=== PATIENT | female | born 1965 | race American Indian/Alaskan Native ===

== ENCOUNTER 2019-05-03 04:07 | Emergency (ER) | payer SELFPAY ==
[2019-05-03] MEDS ORDERED: BABY ASPIRIN PO ONE (04:29)
[2019-05-03 04:56] LABS: Basophils # (Auto) 0.1 K/mm3 (0.0-0.1); Basophils % (Auto) 1.2 % (0.0-1.8); Eosinophils # (Auto) 0.3 K/mm3 (0.0-0.4); Eosinophils % (Auto) 3.2 % (0.0-4.3); Hematocrit 38.7 % (30.3-42.9); Lymphocytes % (Auto) 30.5 % (13.4-35.0); Mean Corpuscular HGB Conc 34 % (30-34); Mean Corpuscular Volume 96 fl (79-97); Monocytes % (Auto) 10.2 % (0.0-7.3); Platelet Count 135 K/mm3 (140-440); Red Blood Count 4.03 M/mm3 (3.65-5.03); Red Cell Distribution Width 15.5 % (13.2-15.2)
[2019-05-03 05:22] LABS: Alanine Aminotransferase 22 units/L (7-56); Albumin 4.3 g/dL (3.9-5); Calcium 8.6 mg/dL (8.4-10.2); Hemolysis Index 6
--- NOTE | 2019-05-03 05:22 | XRay Report ---
CHEST 2 VIEWS INDICATION / CLINICAL INFORMATION: Chest pain for one day. COMPARISON: None available. FINDINGS: SUPPORT DEVICES: None. HEART / MEDIASTINUM: No significant abnormality. LUNGS / PLEURA: No significant pulmonary or pleural abnormality. No pneumothorax. ADDITIONAL FINDINGS: No significant additional findings. IMPRESSION: No acute findings. Signer Name: Hernán Lawrence MD Signed: 05/03/2019 5:17 AM Workstation Name: [id number]
[2019-05-03] MEDS ORDERED: MORPHINE IM ONE (05:26)
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
[2019-05-03] MEDS ORDERED: CATAPRES PO ONE (07:22)
[2019-05-03 07:47] LABS: BUN/Creatinine Ratio 14; Blood Urea Nitrogen 17 mg/dL (7-17)
[2019-05-03 07:53] VITALS: BP 174/124
== END 2019-05-03 08:30 | disposition home or self-care (01) ==
LOC: ED 04:07
DX: S16.1XXA Strain of muscle, fascia and tendon at neck level, initial encounter (principal); S63.502A Unspecified sprain of left wrist, initial encounter; S43.402A Unspecified sprain of left shoulder joint, initial encounter; R07.89 Other chest pain; I11.0 Hypertensive heart disease with heart failure; I50.9 Heart failure, unspecified; J44.9 Chronic obstructive pulmonary disease, unspecified; Z87.448 Personal history of other diseases of urinary system; Z79.899 Other long term (current) drug therapy; Z88.0 Allergy status to penicillin; Y04.0XXA Assault by unarmed brawl or fight, initial encounter; Y93.89 Activity, other specified; Y92.89 Other specified places as the place of occurrence of the external cause; Y99.8 Other external cause status
CPT/HCPCS: 36415; 71046; 72040; 73030; 73110; 73130; 80053; 82550; 84484; 85025; 93005; 93010; 96372; 99284; J2270

== ENCOUNTER 2019-09-14 11:47 | Emergency (ER) | payer MEDICAID ==
[2019-09-14 11:52] VITALS: BP 148/93
--- NOTE | 2019-09-14 11:55 | Event Note ---
ED Screening Note ED Screening Note: +productive cough with yellow sputum that began 4 days +fever +sob PMHx HTN, CKD, COPD former quit 6 months ago This initial assessment/diagnostic orders/clinical plan/treatment(s) is/are subject to change based on patients health status, clinical progression and re- assessment by fellow clinical providers in the ED. Further treatment and workup at subsequent clinical providers discretion. Patient/guardian urged not to elope from the ED as their condition may be serious if not clinically assessed and managed. Initial orders include: CXR
--- NOTE | 2019-09-14 12:35 | XRay Report ---
CHEST 2 VIEWS INDICATION / CLINICAL INFORMATION: prod cough, sob, subjective fever. COMPARISON: 05/02/2019 FINDINGS: SUPPORT DEVICES: None. HEART / MEDIASTINUM: No significant abnormality. LUNGS / PLEURA: No significant pulmonary or pleural abnormality. No pneumothorax. ADDITIONAL FINDINGS: No significant additional findings. IMPRESSION: 1. No acute finding. No significant change. Signer Name: Siddhartha Estes MD Signed: 09/14/2019 12:31 PM Workstation Name: [id number]
--- NOTE | 2019-09-14 13:00 | Emergency Department Report ---
Minor Respiratory - HPI Chief Complaint: Upper Respiratory Infection Stated Complaint: FEVER/CEHST PAIN Time Seen by Provider: 09/14/19 11:52 Duration: 3 Days Pain Location: Throat, Nose, Chest Severity: mild Minor Respiratory: Yes Rhinorrhea, Yes Sore Throat, Yes Able to Tolerate Fluids, Yes Cough, Yes Sick Contacts, Yes Fever, No Hemoptysis, No Chest Pain, No Shortness of Breath Other History: Mrs. Key is a 54-year-old female with history of COPD, chronic kidney disease and hypertension who presents with fever cough with congestion for several days. Productive for white sputum. Positive sore throat. ED Review of Systems ROS: Stated complaint: FEVER/CEHST PAIN Other details as noted in HPI Constitutional: fever, malaise ENT: congestion Respiratory: cough. denies: shortness of breath, wheezing Cardiovascular: denies: chest pain Gastrointestinal: nausea ED Past Medical Hx - Past Medical History Hx Hypertension: Yes Hx Congestive Heart Failure: Yes Hx Renal Disease: Yes Hx COPD: Yes - Social History Smoking Status: Never Smoker Substance Use Type: None - Medications Home Medications: Home Medications Medication Instructions Recorded Confirmed Last Taken Type Furosemide [Lasix TAB] 20 mg PO QDAY #30 tablet 05/03/19 Unknown Rx Naproxen [Naprosyn] 500 mg PO BID #20 tablet 05/03/19 Unknown Rx amLODIPine 10 mg PO BID #30 tablet 05/03/19 Unknown Rx carvediloL [Coreg] 6.25 mg PO BID 30 Days tablet 05/03/19 Unknown Rx methOCARBAMOL [Robaxin TAB] 500 mg PO Q8HR PRN #20 tablet 05/03/19 Unknown Rx Doxycycline Hyclate [Doxycycline 100 mg PO Q12HR 7 Days #14 tab 09/14/19 Unknown Rx Hyclate TAB] Loratadine 10 mg PO DAILY 14 Days #14 capsule 09/14/19 Unknown Rx Minor Respiratory Exam - Exam General: Vital signs noted. No distress. Alert and acting appropriately. HEENT: Yes Moist Mucous Membranes, Yes Rhinorrhea, No Pharyngeal Erythema, No Pharyngeal Exudates, No Conjuctival Injection Neck: Yes Supple Lungs: Yes Good Air Exchange, No Wheezes, No Ronchi, No Stridor, No Cough, No Labored Respirations, No Retractions, No Use of Accessory Muscles, No Other Abnormal Lung Sounds Heart: Yes Regular, No Murmur Abdomen: Yes Normal Bowel Sounds, No Tenderness, No Peritoneal Signs Skin: No Rash, No Edema Neurologic: Alert and oriented, no deficits. Musculoskeletal: Unremarkable. ED Course Vital Signs 09/14/19 11:51 Temperature 97.6 F Pulse Rate 68 Respiratory 24 Rate Blood Pressure 148/93 O2 Sat by Pulse 98 Oximetry ED Medical Decision Making - Medical Decision Making Ms. Key presents with upper respiratory infection. With history of productive cough and COPD, antibiotics are indicated. Prescribed doxycycline and loratadine. Critical care attestation.: If time is entered above; I have spent that time in minutes in the direct care of this critically ill patient, excluding procedure time. ED Disposition Clinical Impression: Upper respiratory infection, Acute bronchitis Disposition: DC- TO HOME OR SELFCARE Is pt being admited?: No Does the pt Need Aspirin: No Condition: Stable Instructions: Acute Bronchitis (ED) Prescriptions: Doxycycline Hyclate [Doxycycline Hyclate TAB] 100 mg PO Q12HR 7 Days #14 tab Loratadine 10 mg PO DAILY 14 Days #14 capsule Referrals: AMY DELVALLE MD [Staff Physician] - as needed
== END 2019-09-14 13:15 | disposition home or self-care (01) ==
LOC: ED 11:47
DX: J06.9 Acute upper respiratory infection, unspecified (principal); J20.9 Acute bronchitis, unspecified; I11.0 Hypertensive heart disease with heart failure; I50.9 Heart failure, unspecified; J44.9 Chronic obstructive pulmonary disease, unspecified; Z88.0 Allergy status to penicillin; Z79.899 Other long term (current) drug therapy
CPT/HCPCS: 71046

== ENCOUNTER 2021-04-08 18:11 | Observation (INO) | payer MEDICAID ==
[2021-04-08] MEDS ORDERED: ASPIRIN 325 MG TAB PO ONE (18:34)
[2021-04-08 19:03] LABS: Basophils # (Auto) 0.1 K/mm3 (0.0-0.1); Basophils % (Auto) 1.4 % (0.0-1.8); Eosinophils # (Auto) 0.1 K/mm3 (0.0-0.4); Eosinophils % (Auto) 1.5 % (0.0-4.3); Hematocrit 41.7 % (30.3-42.9); Hemoglobin 13.8 gm/dl (10.1-14.3); Lymphocytes # (Auto) 2.9 K/mm3 (1.2-5.4); Lymphocytes % (Auto) 34.3 % (13.4-35.0); Mean Corpuscular HGB Conc 33 % (30-34); Mean Corpuscular Volume 98 fl (79-97); Monocytes % (Auto) 12.2 % (0.0-7.3); Platelet Count 165 K/mm3 (140-440); Red Blood Count 4.28 M/mm3 (3.65-5.03)
[2021-04-08 19:28] LABS: Alanine Aminotransferase 17 units/L (7-56); Albumin 4.5 g/dL (3.9-5); BUN/Creatinine Ratio 10; Blood Urea Nitrogen 12 mg/dL (7-17); Calcium 9.2 mg/dL (8.4-10.2); Hemolysis Index 10
--- NOTE | 2021-04-08 23:57 | Emergency Department Report ---
ED Chest Pain HPI - General Chief Complaint: Chest Pain Stated Complaint: CHEST PAINS PUI?: No Time Seen by Provider: 04/08/21 23:15 Source: patient Mode of arrival: Ambulatory Limitations: No Limitations - History of Present Illness Initial Comments: Patient is a 56-year-old female that presents emergency room with complaints of chest pain and shortness of breath. Patient also complains of a dry cough. Patient states her symptoms been going on for 2 days. Patient states that her cough has been going on for 3 days. Patient denies fever or chills. Patient also complains of swollen legs. Patient states she has history of CHF, COPD, [place], hypertension, CKD. Patient denies loss of smell. Patient denies fever or chills. Patient denies productive cough. Patient denies recent travel. Patient denies recent international travel. Patient denies exposure to the novel coronavirus. Patient denies sick contacts. Patient denies fever and chills. Patient denies cough. Patient denies diarrhea. Patient denies coming in contact with anybody with symptoms of the novel coronavirus. MD Complaint: chest pain -: Sudden Onset: during rest Pain Location: substernal, left chest Pain Radiation: LUE, back, neck Severity: severe Severity scale (0 -10): 10 Quality: sharp Consistency: constant Improves With: rest Worsens With: exertion, inspiration, palpation, movement re: dyspnea. denies: nausea, vomting, diaphoresis, sense of impending doom Other Symptoms: cough. denies: fever, syncope, rash, acid taste in mouth, leg swelling, palpitations Treatments Prior to Arrival: aspirin Aspirin use within the Past 7 Days: (1) Yes - Related Data On Oral Contraceptives: No Previous Rx's Medication Instructions Recorded Last Taken Type Furosemide [Lasix TAB] 20 mg PO QDAY #30 tablet 05/03/19 Unknown Rx Naproxen [Naprosyn] 500 mg PO BID #20 tablet 05/03/19 Unknown Rx amLODIPine 10 mg PO BID #30 tablet 05/03/19 Unknown Rx carvediloL [Coreg] 6.25 mg PO BID 30 Days tablet 05/03/19 Unknown Rx methOCARBAMOL [Robaxin TAB] 500 mg PO Q8HR PRN #20 tablet 05/03/19 Unknown Rx Doxycycline Hyclate [Doxycycline 100 mg PO Q12HR 7 Days #14 tab 09/14/19 Unknown Rx Hyclate TAB] Loratadine 10 mg PO DAILY 14 Days #14 capsule 09/14/19 Unknown Rx Allergies Allergy/AdvReac Type Severity Reaction Status Date / Time Penicillins Allergy Rash Verified 05/03/19 07:44 Heart Score - HEART Score History: Slightly suspicious EKG: Normal Age: 45-65 Risk factors: > 3 risk factors or hx of atherosclerotic disease Troponin: < normal limit HEART Score: 3 - EKG Read Time Time EKG Completed: 18:37 EKG Read Time: 18:37 ED Review of Systems ROS: Stated complaint: CHEST PAINS Other details as noted in HPI Constitutional: denies: chills, fever Eyes: denies: eye pain, eye discharge, vision change ENT: denies: ear pain, throat pain Respiratory: see HPI, cough, shortness of breath, SOB with exertion, SOB at rest. denies: wheezing Cardiovascular: as per HPI, chest pain. denies: palpitations Endocrine: no symptoms reported Gastrointestinal: denies: abdominal pain, nausea, diarrhea Genitourinary: denies: urgency, dysuria, discharge Musculoskeletal: denies: back pain, joint swelling, arthralgia Skin: denies: rash, lesions Neurological: denies: headache, weakness, paresthesias Psychiatric: denies: anxiety, depression Hematological/Lymphatic: denies: easy bleeding, easy bruising ED Past Medical Hx - Past Medical History Previous Medical History?: Yes Hx Hypertension: Yes Hx Heart Attack/AMI: Yes Hx Congestive Heart Failure: Yes Hx Renal Disease: Yes Hx COPD: Yes - Surgical History Past Surgical History?: Yes Additional Surgical History: thyroid, neck surgery with a metal plate - Family History Family history: no significant - Social History Smoking Status: Never Smoker Substance Use Type: None - Medications Home Medications: Home Medications Medication Instructions Recorded Confirmed Last Taken Type Furosemide [Lasix TAB] 20 mg PO QDAY #30 tablet 05/03/19 Unknown Rx Naproxen [Naprosyn] 500 mg PO BID #20 tablet 05/03/19 Unknown Rx amLODIPine 10 mg PO BID #30 tablet 05/03/19 Unknown Rx carvediloL [Coreg] 6.25 mg PO BID 30 Days tablet 05/03/19 Unknown Rx methOCARBAMOL [Robaxin TAB] 500 mg PO Q8HR PRN #20 tablet 05/03/19 Unknown Rx Doxycycline Hyclate [Doxycycline 100 mg PO Q12HR 7 Days #14 tab 09/14/19 Unknown Rx Hyclate TAB] Loratadine 10 mg PO DAILY 14 Days #14 capsule 09/14/19 Unknown Rx ED Physical Exam - General Limitations: No Limitations General appearance: alert, in no apparent distress - Head Head exam: Present: atraumatic, normocephalic - Eye Eye exam: Present: normal appearance - ENT ENT exam: Present: mucous membranes moist - Neck Neck exam: Present: normal inspection - Respiratory Respiratory exam: Present: respiratory distress, wheezes, rhonchi, chest wall tenderness - Cardiovascular Cardiovascular Exam: Present: regular rate, normal rhythm. Absent: systolic murmur, diastolic murmur, rubs, gallop - GI/Abdominal GI/Abdominal exam: Present: soft, normal bowel sounds - Extremities Exam Extremities exam: Present: normal inspection - Back Exam Back exam: Present: normal inspection - Neurological Exam Neurological exam: Present: alert, oriented X3 - Psychiatric Psychiatric exam: Present: normal affect, normal mood - Skin Skin exam: Present: warm, dry, intact, normal color. Absent: rash ED Course Vital Signs 04/08/21 04/09/21 04/09/21 18:33 00:45 00:46 Temperature 98.9 F 98 F Pulse Rate 77 62 Pulse Rate [ 64 Bilateral] Respiratory 20 18 Rate Respiratory 20 Rate [Bilateral ] Blood Pressure 152/102 Blood Pressure 158/93 [Right] O2 Sat by Pulse 98 99 Oximetry - Reevaluation(s) Reevaluation #1: Patient found to have increased work of breathing and abnormal lung sounds. Patient will be given DuoNeb, Medrol, magnesium. 04/09/21 00:01 Reevaluation #2: I discussed all results with patient. I discussed plan of care with patient. Patient agrees with plan of care and admission. Patient to be admitted to the hospitalist service. 04/09/21 00:26 - Consultations Consultation #1: Hospitalist consulted for admission. Hospitalist to admit patient. 04/09/21 00:26 MIKE score - Mike Score Age > 65: (0) No Aspirin use within the Past 7 Days: (1) Yes 3 or more CAD Risk Factors: (1) Yes 2 or more Angina events in past 24 hrs: (0) No Known CAD with more than 50% Stenosis: (0) No Elevated Cardiac Markers: (0) No ST Deviation Greater than 0.5mm: (0) No MIKE Score: 2 ED Medical Decision Making - Lab Data Result diagrams: 04/08/21 18:46 04/08/21 18:46 - EKG Data -: EKG Interpreted by Me EKG shows normal: sinus rhythm, axis, intervals, QRS complexes, ST-T waves Rate: normal - Radiology Data Radiology results: report reviewed, image reviewed interpreted by me: Chest x-ray: No pneumonia, no pneumothorax, no foreign body, no osseous findings, no acute findings CHEST 2 VIEWS INDICATION / CLINICAL INFORMATION: CP...CP x 2 days, +SOB x 2 days, legs swollen.. COMPARISON: None available FINDINGS: SUPPORT DEVICES: None. HEART / MEDIASTINUM: No significant abnormality. LUNGS / PLEURA: No significant pulmonary or pleural abnormality. No pneumothorax. ADDITIONAL FINDINGS: No significant additional findings. IMPRESSION: 1. No acute findings. - Medical Decision Making Patient is a 56-year-old female that presents emergency room with complaints of chest pain shortness of breath and cough. Patient had abnormal lung sounds on exam. Patient had wheezing and rhonchi. Patient given duo nebs, steroids and magnesium after initial evaluation. Patient had labs done which were essentially unremarkable. Patient had 2 - troponins. Patient's EKG was unremarkable and showed normal sinus rhythm and no ST changes. I personally reviewed the EKG. Patient had a chest x-ray which was negative for acute finding. I personally reviewed EKG. Patient admitted to the hospital service for further evaluation treatment. Patient will need admitted to rule out ACS and for COPD exacerbation. Critical care time documented due to the multiple reassessments, prolonged time at the bedside, interpretation of diagnostics and labs. - Differential Diagnosis Chest pain, COPD exacerbation, ACS, shortness of breath, pneumonia Critical Care Time: Yes Critical care time in (mins) excluding proc time.: 35 Critical care attestation.: If time is entered above; I have spent that time in minutes in the direct care of this critically ill patient, excluding procedure time. Critical Care Time: 35 minutes ED Disposition Clinical Impression: SOB (shortness of breath), Chest wall pain, COPD exacerbation, Cough Chest pain Qualifiers: Chest pain type: unspecified Qualified Code(s): R07.9 - Chest pain, unspecified Disposition: 09 OP ADMIT IP TO THIS HOSP Is pt being admited?: Yes Does the pt Need Aspirin: No Condition: Critical Time of Disposition: 00:26
[2021-04-08] MEDS ORDERED: HYDROmorphone 1 MG/1 ML INJ IV ONE (23:58)
[2021-04-08] MEDS ORDERED: methylPREDNISolone Sod Succinate 125 MG/2 ML INJ IV ONE (23:58)
[2021-04-08] MEDS ORDERED: IPRATROPIUM/ALBUTEROL SULFATE 3 ML AMPUL.NEB IH ONE (23:58)
[2021-04-08] MEDS ORDERED: MAGNESIUM SULFATE 2 GM/50 ML BAG IV ONE (23:58)
[2021-04-09] MEDS ORDERED: traMADol 50 MG TAB PO PRN (01:43)
[2021-04-09] MEDS ORDERED: NITROGLYCERIN 0.4 MG TAB SUBL SL PRN (01:43)
[2021-04-09] MEDS ORDERED: ACETAMINOPHEN 325 MG TAB PO PRN (01:43)
[2021-04-09] MEDS ORDERED: MORPHINE 4 MG/1 ML INJ IV PRN (01:43)
[2021-04-09] MEDS ORDERED: hydrALAZINE 20 MG/1 ML INJ IV PRN (01:47)
--- NOTE | 2021-04-09 01:52 | History and Physical Report ---
History of Present Illness Date of examination: 04/09/21 Date of admission: 04/09/21 00:16 Chief complaint: Chest pain shortness of breath History of present illness: 56-year-old female with history of CHF COPD DE hypertension and CKD was brought to the emergency room because of chest pain and shortness of breath. Patient also complains of a dry cough. Patient states her symptoms been going on for 2 days. Patient states that her cough has been going on for 3 days. Patient also complains of swollen legs. Patient states she has history of CHF, COPD, DE, hypertension, CKD. Patient denies loss of smell. Patient denies fever or chills. Patient denies productive cough. In the emergency room patient troponin is 0.010. Patient also found to have acute COPD exacerbation Past History Past Medical History: acute DE, COPD, heart failure, hypertension, renal failure Medications and Allergies Allergies Allergy/AdvReac Type Severity Reaction Status Date / Time Penicillins Allergy Rash Verified 05/03/19 07:44 Home Medications Medication Instructions Recorded Confirmed Last Taken Type Furosemide [Lasix TAB] 20 mg PO QDAY #30 tablet 05/03/19 Unknown Rx Naproxen [Naprosyn] 500 mg PO BID #20 tablet 05/03/19 Unknown Rx amLODIPine 10 mg PO BID #30 tablet 05/03/19 Unknown Rx carvediloL [Coreg] 6.25 mg PO BID 30 Days tablet 05/03/19 Unknown Rx methOCARBAMOL [Robaxin TAB] 500 mg PO Q8HR PRN #20 tablet 05/03/19 Unknown Rx Doxycycline Hyclate [Doxycycline 100 mg PO Q12HR 7 Days #14 tab 09/14/19 Unknown Rx Hyclate TAB] Loratadine 10 mg PO DAILY 14 Days #14 capsule 09/14/19 Unknown Rx Review of Systems Cardiovascular: chest pain, shortness of breath, dyspnea on exertion Respiratory: cough, cough with sputum, shortness of breath, dyspnea on exertion Exam - Constitutional Vitals: Temp Pulse Resp BP Pulse Ox 98 F 62 18 158/93 99 04/09/21 00:46 04/09/21 00:46 04/09/21 00:46 04/09/21 00:46 04/09/21 00:46 General appearance: Present: no acute distress, well-nourished - EENT Eyes: Present: PERRL ENT: hearing intact, clear oral mucosa - Neck Neck: Present: supple, normal ROM - Respiratory Respiratory effort: normal, other (Chest wall tenderness) Respiratory: bilateral: rhonchi, wheezing - Cardiovascular Heart Sounds: Present: S1 & S2. Absent: rub, click - Extremities Extremities: pulses symmetrical, No edema Peripheral Pulses: within normal limits - Abdominal General gastrointestinal: Present: soft, non-tender, non-distended, normal bowel sounds Female genitourinary: Present: normal - Integumentary Integumentary: Present: clear, warm, dry - Musculoskeletal Musculoskeletal: gait normal, strength equal bilaterally - Psychiatric Psychiatric: appropriate mood/affect, intact judgment & insight - Neurologic Neurologic: CNII-XII intact, moves all extremities HEART Score - HEART Score EKG: Normal Age: 45-65 Risk factors: > 3 risk factors or hx of atherosclerotic disease Troponin: Troponin T < 0.010 ng/mL (0.00-0.029) 04/09/21 00:35 Troponin: < normal limit Results - Labs CBC & Chem 7: 04/08/21 18:46 04/08/21 18:46 Labs: Laboratory Last Values WBC 8.3 K/mm3 (4.5-11.0) 04/08/21 18:46 RBC 4.28 M/mm3 (3.65-5.03) 04/08/21 18:46 Hgb 13.8 gm/dl (10.1-14.3) 04/08/21 18:46 Hct 41.7 % (30.3-42.9) 04/08/21 18:46 MCV 98 fl (79-97) H 04/08/21 18:46 MCH 32 pg (28-32) 04/08/21 18:46 MCHC 33 % (30-34) 04/08/21 18:46 RDW 15.0 % (13.2-15.2) 04/08/21 18:46 Plt Count 165 K/mm3 (140-440) 04/08/21 18:46 Lymph % (Auto) 34.3 % (13.4-35.0) 04/08/21 18:46 Glynn % (Auto) 12.2 % (0.0-7.3) H 04/08/21 18:46 Eos % (Auto) 1.5 % (0.0-4.3) 04/08/21 18:46 Baso % (Auto) 1.4 % (0.0-1.8) 04/08/21 18:46 Lymph # (Auto) 2.9 K/mm3 (1.2-5.4) 04/08/21 18:46 Glynn # (Auto) 1.0 K/mm3 (0.0-0.8) H 04/08/21 18:46 Eos # (Auto) 0.1 K/mm3 (0.0-0.4) 04/08/21 18:46 Baso # (Auto) 0.1 K/mm3 (0.0-0.1) 04/08/21 18:46 Seg Neutrophils % 50.6 % (40.0-70.0) 04/08/21 18:46 Seg Neutrophils # 4.2 K/mm3 (1.8-7.7) 04/08/21 18:46 Sodium 142 mmol/L (137-145) 04/08/21 18:46 Potassium 3.7 mmol/L (3.6-5.0) 04/08/21 18:46 Chloride 104.3 mmol/L (98-107) 04/08/21 18:46 Carbon Dioxide 19 mmol/L (22-30) L 04/08/21 18:46 Anion Gap 22 mmol/L 04/08/21 18:46 BUN 12 mg/dL (7-17) 04/08/21 18:46 Creatinine 1.2 mg/dL (0.6-1.2) 04/08/21 18:46 Estimated GFR 57 ml/min 04/08/21 18:46 BUN/Creatinine Ratio 10 % 04/08/21 18:46 Glucose 82 mg/dL (65-100) 04/08/21 18:46 Calcium 9.2 mg/dL (8.4-10.2) 04/08/21 18:46 Total Bilirubin 0.20 mg/dL (0.1-1.2) 04/08/21 18:46 AST 20 units/L (5-40) 04/08/21 18:46 ALT 17 units/L (7-56) 04/08/21 18:46 Alkaline Phosphatase 91 units/L (35-129) 04/08/21 18:46 Troponin T < 0.010 ng/mL (0.00-0.029) 04/09/21 00:35 NT-Pro-B Natriuret Pep 73.85 pg/mL (0-900) 04/08/21 18:46 Total Protein 7.3 g/dL (6.3-8.2) 04/08/21 18:46 Albumin 4.5 g/dL (3.9-5) 04/08/21 18:46 Albumin/Globulin Ratio 1.6 % 04/08/21 18:46 - Imaging and Cardiology Chest x-ray: report reviewed Assessment and Plan VTE prophylaxis?: Chemical Plan of care discussed with patient/family: Yes - Patient Problems (1) Acute coronary syndrome Current Visit: Yes Status: Acute Plan to address problem: Admit the patient to the medical telemetry. Aspirin 81 mg p.o. daily. Lipitor 40 mg p.o. daily nitroglycerin as needed we will do the serial cardiac enzyme . We also do a Lexiscan. Consult cardiology if needed (2) Hypertension Current Visit: Yes Status: Acute Plan to address problem: Coreg 6.25 mg p.o. twice daily, hydralazine 10 mg every 6 hours as needed. We will monitor the blood pressure closely (3) GERD (gastroesophageal reflux disease) Current Visit: Yes Status: Acute Plan to address problem: Pepcid 20 mg IV every 12 hours. We will continue the home medication (4) CHF (congestive heart failure) Current Visit: Yes Status: Acute Plan to address problem: Stable. We will continue the Coreg 6.25 mg p.o. twice daily and Lasix 20 mg p.o. daily. We will also do a Lexiscan. Fluid restriction (5) COPD exacerbation Current Visit: Yes Status: Acute Plan to address problem: Oxygen via nasal cannula 3 to per minute DuoNeb by nebulizer every 4 hours. Albuterol via nebulizer every 4 hours as needed. We will continue the home medication (6) SOB (shortness of breath) Current Visit: Yes Status: Acute Plan to address problem: Oxygen via nasal cannula 3 to per minute DuoNeb by nebulizer every 4 hours. Albuterol via nebulizer every 4 hours as needed. We will continue the home medication (7) DVT prophylaxis Current Visit: Yes Status: Acute Plan to address problem: Heparin 5000 units subcu every 8 hours for DVT prophylaxis. Pepcid 20 mg p.o. twice daily for GI prophylaxis. Patient is a full code
[2021-04-09] MEDS: IPRATROPIUM/ALBUTEROL SULFATE 3 ML AMPUL.NEB IH SCH ×4 (02:34→20:06)
[2021-04-09 05:20] LABS: Mean Corpuscular HGB Conc 34 % (30-34); Mean Corpuscular Volume 96 fl (79-97); Platelet Count 155 K/mm3 (140-440); Red Blood Count 4.28 M/mm3 (3.65-5.03)
[2021-04-09] MEDS: HEPARIN 5,000 UNIT/1 ML VIAL SUB-Q SCH ×3 (05:30→21:30)
[2021-04-09 05:35] LABS: BUN/Creatinine Ratio 10; Blood Urea Nitrogen 10 mg/dL (7-17); Calcium 8.9 mg/dL (8.4-10.2); Hemolysis Index 2
[2021-04-09 06:31] LABS: Total Cells Counted 100
[2021-04-09 06:32] LABS: Giant Platelets Few; Platelet Estimate Consistent w Auto; RBC Morphology Normal
[2021-04-09] MEDS ORDERED: REGADENOSON 0.4 MG/5 ML INJ IV ONE (07:24)
[2021-04-09] MEDS ORDERED: CETIRIZINE 10 MG TAB PO SCH (10:00)
[2021-04-09] MEDS ORDERED: FUROSEMIDE 20 MG TAB PO SCH (10:00)
[2021-04-09] MEDS ORDERED: PANTOPRAZOLE 40 MG TAB PO SCH (10:00)
[2021-04-09] MEDS ORDERED: LORATADINE 10 MG PO SCH (10:00)
[2021-04-09] MEDS: amLODIPine 10 MG TAB PO SCH ×2 (10:56→21:32)
[2021-04-09] MEDS: methylPREDNISolone Sod Succinate 40 MG/1 ML INJ IV SCH ×2 (10:56→21:31)
[2021-04-09] MEDS: carvediloL 6.25 MG TAB PO SCH ×2 (10:56→21:32)
[2021-04-09] MEDS: NAPROXEN 500 MG TAB PO SCH ×2 (10:57→21:31)
--- NOTE | 2021-04-09 17:28 | Discharge Summary ---
Providers - Providers Date of Admission: 04/09/21 00:16 Date of discharge: 04/09/21 Attending physician: NESSA PEREZ 04/09/21 Consult to Cardiac Rehabilitation [CONS] Routine Reason For Exam: Phase I Primary care physician: KELLY SALAS MD Hospitalization Condition: Critical Hospital course: 56-year-old presented with a history of congestive heart failure, COPD, CT in the past, hypertension coronary disease presented with 2-day history of shortness of breath cough x2 days. Patient was found to be somewhat hypertensive at 145/94. Pulse 75. Chest x-ray was negative patient was brought in ruled out for CT. Patient has negative cardiac isoenzymes, echocardiogram ejection fraction 55%. Stress test unremarkable. Negative cardiac isoenzymes no chest pain remains chest pain-free follow-up with cardiology as outpatient. Disposition: TO HOME OR SELFCARE Final Discharge Diagnosis (Prints w/discharge instructions): Costochondritis - Discharge Diagnoses (1) Chest wall pain Status: Acute Comment: Patient with chest wall pain appears to be resolving costochondritis. Initiate rest. Follow-up with cardiology 7 days. Continue antiplatelet and antilipid therapy. Core Measure Documentation - Palliative Care Palliative Care/ Comfort Measures: Not Applicable - Core Measures Any of the following diagnoses?: none Exam - Constitutional Vitals: Temp Pulse Resp BP Pulse Ox 98.0 F 64 18 137/89 96 04/09/21 16:36 04/09/21 16:36 04/09/21 16:36 04/09/21 16:36 04/09/21 16:36 Plan Activity: no restrictions Weight Bearing Status: Full Weight Bearing Diet: low cholesterol, low salt Follow up with: PRIMARY MD MARITZA [Primary Care Provider] - 3-5 Days
[2021-04-09] MEDS ORDERED: PROMETHAZINE/CODEINE 6.25-10 MG ORAL LIQD 5 ML PO ONE (21:00)
[2021-04-10 04:03] VITALS: BP 121/68
[2021-04-10] MEDS: IPRATROPIUM/ALBUTEROL SULFATE 3 ML AMPUL.NEB IH SCH ×2 (04:54→07:58)
[2021-04-10] MEDS: HEPARIN 5,000 UNIT/1 ML VIAL SUB-Q SCH (05:25)
--- NOTE | 2021-04-10 09:47 | Electrocardiograph Report ---
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
--- NOTE | 2021-04-10 09:48 | Electrocardiograph Report ---
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
[2021-04-10] MEDS ORDERED: ASPIRIN 81 MG TAB CHEW PO SCH (10:00)
== END 2021-04-10 09:20 | disposition home or self-care (01) ==
LOC: ED 18:11 → 4A 04-09 00:16
PROVIDERS: ADMIT Hospitalist; ATTEND Internal Medicine
DX: I24.9 Acute ischemic heart disease, unspecified (principal); R07.89 Other chest pain; I11.0 Hypertensive heart disease with heart failure; I50.9 Heart failure, unspecified; J44.1 Chronic obstructive pulmonary disease with (acute) exacerbation; K21.9 Gastro-esophageal reflux disease without esophagitis; I25.2 Old myocardial infarction; R05 Cough; F17.210 Nicotine dependence, cigarettes, uncomplicated
CPT/HCPCS: 36415; 71046; 78452; 80048; 80053; 82962; 83880; 84484; 85007; 85025; 93005; 93017; 94640; 96365; 96372; 96375; 96376; 99291; 99406; A9270; A9502; G0378; J1170; J1644; J2785; J2920; J2930; J3475; 94644

== ENCOUNTER 2022-04-07 08:25 | Outpatient (CLI) | payer MEDICAID ==
--- NOTE | 2022-04-07 13:09 | Fluoroscopy Report ---
MODIFIED BARIUM SWALLOW INDICATION: REFLUX TECHNIQUE: Swallowing was evaluated in the lateral position under direct fluoroscopy. FINDINGS: The patient was evaluated with thin liquids, puree, semisolid and solid consistencies. Premature spillage was seen with all consistencies. No evidence for penetration or aspiration. IMPRESSION: No evidence for aspiration. Fluoroscopic time: 2 minutes Number of fluoroscopic images: 3 Signer Name: Tee Neal Jr, MD Signed: 04/07/2022 1:05 PM Workstation Name: [id number]
== END 2022-04-07 08:26 | disposition home or self-care (01) ==
LOC: PT 08:25
DX: K21.9 Gastro-esophageal reflux disease without esophagitis (principal)
CPT/HCPCS: 74230